=== PATIENT | male | born 2005 | race Caucasian/White ===

== ENCOUNTER 2024-07-14 22:21 | Emergency (ER) | payer BC ==
[~2024-07-14] VITALS: Ht 182.9 cm; Wt 104.3 kg
[2024-07-14 22:36] VITALS: BP_SYST 161; PULSE 105; RESP 21; TEMP 97.5; O2SAT 98
[2024-07-14] MEDS ORDERED: SILVER SULFADIAZINE 1%, 25 GM TOPICAL CREAM (SSD) TP ONE (22:45)
[2024-07-14] MEDS: SILVER SULFADIAZINE 1%, 25 GM TOPICAL CREAM (SSD) TP ONE (23:12)
[2024-07-14] MEDS: DIPHTH,PERTUSS(ACELL),TET VAC 0.5 ML VIAL (Tdap) I.M. ONE (23:12)
[2024-07-14] MEDS: MORPHINE 4 MG INJ. 4 MG/ML VIAL IM ONE (23:12)
[2024-07-14] MEDS ORDERED: NEOM28.36 TP (23:18)
[2024-07-14] MEDS ORDERED: NAPR-1172 PO (23:18)
[2024-07-14] MEDS ORDERED: BACITRACIN 1 GM OINT TP ONE (23:20)
[2024-07-14 23:38] VITALS: BP_SYST 161; PULSE 105; RESP 21; TEMP 97.5; O2SAT 98
== END 2024-07-14 23:37 | disposition home or self-care (01) ==
LOC: SED 22:21
DX: T22.111A Burn of first degree of right forearm, initial encounter (principal); Z23 Encounter for immunization; Z79.899 Other long term (current) drug therapy; X08.8XXA Exposure to other specified smoke, fire and flames, initial encounter; Y93.89 Activity, other specified; Y92.89 Other specified places as the place of occurrence of the external cause; Y99.8 Other external cause status
CPT/HCPCS: 90715; 99283; J2270